=== PATIENT | female | born 1990 ===

== ENCOUNTER 2020-04-20 12:01 | Day surgery (SDC) | payer OTHER, SELFPAY ==
[2020-04-20] VITALS (11 sets, daily range): BP systolic 109–147; BP diastolic 60–94; PULSE 75–118; RESP 14–18; TEMP 36.2–36.6; O2SAT 97–100
--- NOTE | ~2020-04-20 | US_ITS ---
EXAMINATION: US OB <=14 wk fetus w TV EXAM DATE: 04/20/2020 13:44 INDICATION: Ectopic . 1st trimester. TECHNIQUE: Pelvic obstetrical transabdominal sonogram was performed by a technologist. There are mu ltiple grayscale and Doppler images available for interpretation. There are no earlier studies of th is gestation for comparison. FINDINGS: The uterus measures 8.4 x 4.4 cm. There is no intrauterine gestation sac identified. Endome trium measures 13 mm in thickness. Left ovary is morphologically normal with Doppler flow confirmed. The right ovary measures 1.0 x 2.0 x 4.1 cm with a thick walled cystic region consistent with gestati on sac and yolk sac. Suspect identification of a tiny pole with heart rate at 97 bpm. IMPRESSION: Live right ovarian ectopic . Reviewed, dictated and finalized at location A. UTER SUPPORT TECHNICIAN
--- NOTE | 2020-04-20 12:21 | ED.GENADULT ---
HPI - General Adult General Chief complaint: Unspecified Stated complaint: having an ectopic Time Seen by Provider: 04/20/20 12:21 History of Present Illness HPI narrative: 29 yo female female at approximately 4 weeks gestation presents to the ED for an ectopic . She reports that she was having severe pelvic pain 2 dyas ago and she was seen at an outside hospital. They did not do anyimaging. She then followed up with her family physician the following dy and was scheduled for an ultrasound. She had the ultrasound this morning and was called that she had an ectopic and that she needed to come in. Those records are not available at this time. She currently has mild right sided pelvic pain. No bleeding or discharge. Related Data Home Medications Medication Instructions Recorded Confirmed omeprazole 40 mg capsule,delayed 40 mg PO DAILY 06/21/19 07/05/19 release flu vac [id number] 36mos up(PF) syr IM 07/05/19 07/05/19 fluticasone propionate 50 NASAL 07/05/19 07/05/19 mcg/actuation nasal spray,suspension valacyclovir 1 gram tablet mg PO PRN 07/05/19 07/05/19 Allergies Allergy/AdvReac Type Severity Reaction Status Date / Time Sulfa (Sulfonamide Allergy Unknown Unknown Verified 04/20/20 12:03 Antibiotics) Review of Systems Review of Systems: All systems reviewed & are unremarkable except as noted in HPI and below Constitutional: Constitutional: Denies fever(s) Cardiovascular: Cardiovascular: Denies chest pain Respiratory: Respiratory: Denies dyspnea Gastrointestinal: Gastrointestinal: Denies nausea and Denies vomiting Genitourinary: Genitourinary: Denies vaginal discharge [facility] Past Medical History Medical History Encounter for Pap cervical smear following prior abnormal smear Essential (primary) hypertension Surgical History Surgical History H/O nasal septoplasty Family History Family History Father Family history of hypercholesterolemia Hypertension Malignant neoplasm of prostate Mother Family history of hypercholesterolemia Depression Family history of thyroid disease Hypertension Family history of ulcerative colitis Social History Social History Social History: ; menarche @ 13; OCP started @ 14 y/o Smoking status: Never smoker Second hand tobacco smoke exposure: No Alcohol intake: unknown Substance use: never Substance use type: marijuana Other substance usage details: occ hits Additional living arrangements comments: lives w/ Maurisio, alexander and Jessica, 8 y/o daughter by former boyfriend 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 Gender identity (if verbalized by the patient): Female Spiritual care concerns: No Agree to blood products: Yes Exam Const: General: healthy appearing Orientation/consciousness: patient oriented x3 HENMT: Head: normal to inspection Neck: Neck: normal visual inspection and no lymphadenopathy Chest: Chest palpation & inspection: no tenderness Resp: Effort & Inspection: normal respiratory effort Auscultation: clear to auscultation bilaterally, no rales, no rhonchi and no wheezes Cardio: Jugular venous distension: no JVD Rate: regular rate Rhythm: regular rhythm Heart sounds: no murmurs GI: Inspection: non-distended GI Palp: Yes Soft to palpation and No Tenderness to palpation present (GI) : General: Yes deferred Skin: General skin exam: normal color Neuro: General: patient oriented x3 and moves all extremities Speech: normal speech Extrem: General: no edema Psych: Appearance: well kempt Affect: normal affect Course Vital Signs Vital signs: Vital Signs Temperature 36.6 C 04/20/20 12:03 Pulse Rate 99 04/20/20 12
[2020-04-20 13:51] LABS: Basophils Absolute Auto 0.1 K/mm3 (0.0-0.1); Basophils Percent Auto 0.5 % (0.2-1.2); Eosinophils Absolute Auto 0.1 K/mm3 (0-0.3); Eosinophils Percent Auto 0.6 % (0-4.4); Hematocrit 43.1 % (37.0-47.0); Hemoglobin 14.5 g/dL (12.0-15.0); Immature Granulocyte Absolute 0.04 K/mm3 (0.00-0.031); Immature Granulocyte Percent A 0.4 % (0-0.5); Lymphocytes Absolute Auto 2.91 K/mm3 (0.9-3.2); Lymphocytes Percent Auto 26.7 % (18.3-44.2); Mean Corpuscular HGB Conc 33.6 g/dl (32-36); Mean Corpuscular Hemoglobin 29.4 pg (26-34); Mean Corpuscular Volume 87.4 fl (80-100); Mean Platelet Volume 11.4 fl (7.4-10.4); Monocytes Absolute Auto 0.7 K/mm3 (0.1-0.6); Monocytes Percent Auto 6.7 % (2.6-8.5); Neutrophils Absolute Auto 7.1 K/mm3 (1.3-6.7); Neutrophils Percent Auto 65.1 % (45.5-73.1); Platelet Count Result 302 k/mm3 (150-375); Red Blood Count 4.93 M/mm3 (4.2-5.4); Red Cell Distribution Width 13.2 % (11.5-14.5); White Blood Count 10.9 K/mm3 (4.5-10.0)
[2020-04-20 14:03] LABS: Anion Gap 11 mmol/L (8-16); Blood Urea Nitrogen 13 mg/dL (7-17); Calcium 9.4 mg/dL (8.4-10.2); Carbon Dioxide 24 mmol/L (22-30); Chloride 100 mmol/L (98-107); Estimated Glomerular Filt Rate > 60; Glucose 77 mg/dL (65-105); Potassium 3.6 mmol/L (3.4-5.0); Sodium 135 mmol/L (137-145)
--- NOTE | 2020-04-20 15:04 | PM.IMHP ---
H&P: HPI History of Present Illness Date/Time: 04/20/20 15:04 Chief Complaint: Ectopic Narrative: Nazanin Magallon is a 29 year old female presenting to the emergency department with reports of the previously diagnosed ectopic by her primary OBGYN. She states that she had an ultrasound at an outside hospital this morning which showed an ectopic she was advised by her OBGYN to go to the emergency room for further evaluation. An ectopic was confirmed on ultrasound here at [facility] which showed a live in the right adnexa with heart motion detected. She reports mild low abdominal pain but states that it is not significant. Denies vaginal bleeding. Denies fevers chills nausea or vomiting. The last time she ate was 9:00 a.m. this morning when she had cereal for breakfast. Review of Systems Constitutional: Constitutional: Reports no additional constitutional complaints Cardiovascular: Cardiovascular: Reports no additional cardiovascular complaints Respiratory: Respiratory: Reports no additional respiratory complaints Gastrointestinal: Gastrointestinal: Reports as per HPI and Reports no additional gastrointestinal complaints Genitourinary: Genitourinary: Reports as per HPI Musculoskeletal: Musculoskeletal: Reports no additional musculoskeletal complaints Neurologic: Reports system reviewed and no additional complaints, except as documented Psychiatric: Psychiatric: Reports no additional psychiatric complaints Endocrine: Endocrine: Reports no additional endocrine complaints Hematologic/Lymphatic: Hematologic/Lymphatic: Reports no additional hematologic/lymphatic complaints Allergic/Immunologic: Allergic/Immunologic: Reports no additional allergic/immunologic complaints [facility] Past Medical History Medical History Encounter for Pap cervical smear following prior abnormal smear Essential (primary) hypertension Surgical History Surgical History H/O nasal septoplasty Family History Family History Father Family history of hypercholesterolemia Hypertension Malignant neoplasm of prostate Mother Family history of hypercholesterolemia Depression Family history of thyroid disease Hypertension Family history of ulcerative colitis Social History Social History (Updated 04/20/20 @ 15:10 by Beny Dixon DO) Social History: ; menarche @ 13; OCP started @ 14 y/o Smoking status: Never smoker Second hand tobacco smoke exposure: No Alcohol intake: unknown Substance use: never Substance use type: marijuana Other substance usage details: occ hits Additional living arrangements comments: lives w/ Maurisio, alexander and Jessica, 8 y/o daughter by former boyfriend 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 Gender identity (if verbalized by the patient): Female Spiritual care concerns: No Agree to blood products: Yes Meds Home Medications and Allergies Home Medications Medication Instructions Recorded Confirmed Type lisinopril 10 mg tablet 10 mg PO DAILY #30 tablet 06/21/19 07/05/19 Rx norgestimate-ethinyl estradiol 1 tablet PO DAILY #28 tablet 06/21/19 07/05/19 Rx 0.18 mg/0.215mg/0.25mg-35 mcg(28)tablet omeprazole 40 mg capsule,delayed 40 mg PO DAILY 06/21/19 07/05/19 History release flu vac [id number] 36mos up(PF) syr IM 07/05/19 07/05/19 History fluticasone propionate 50 NASAL 07/05/19 07/05/19 History mcg/actuation nasal spray,suspension valacyclovir 1 gram tablet mg PO PRN 07/05/19 07/05/19 History labetalol 100 mg tablet 100 mg PO Q12H #60 tablet 10/05/19 Rx citalopram 10 mg tablet See Rx Instructions .ROUTE 12/13/19 Rx .COMPLEX #30 tablet Allergies Allergy/AdvReac Type Severity Reaction Status Date / Time Sulfa (Sulfo
--- NOTE | 2020-04-20 15:31 | WPDHPUPDATE1 ---
History and Physical Update Update Date/Time: 04/20/20 15:31 History and Physical has been reviewed, including an updated exam of the patient. There are NO changes in the patient's condition. Risks, benefits, and alternatives have been discussed and questions answered. Patient agrees to proceed with procedure.
--- NOTE | 2020-04-20 15:33 | WPDANESEPPF ---
Anes - Initial Pre Proc Eval Date/Time: 04/20/20 15:33 Surgeon: Beny Dixon DO Pre Op Diagnosis: having an ectopic Patient Data Age: 29 Gender: F Height: 1.5 m Weight: 53 kg Last Vital Signs Temp 36.6 C 04/20/20 12:03 Pulse 85 04/20/20 14:37 Resp 16 04/20/20 14:37 BP 132/86 04/20/20 14:37 Pulse Ox 100 04/20/20 14:37 Allergies Allergy/AdvReac Type Severity Reaction Status Date / Time Sulfa (Sulfonamide Allergy Unknown Unknown Verified 04/20/20 12:03 Antibiotics) Home Medications Medication Instructions Recorded Confirmed Type lisinopril 10 mg tablet 10 mg PO DAILY #30 tablet 06/21/19 07/05/19 Rx norgestimate-ethinyl estradiol 1 tablet PO DAILY #28 tablet 06/21/19 07/05/19 Rx 0.18 mg/0.215mg/0.25mg-35 mcg(28)tablet omeprazole 40 mg capsule,delayed 40 mg PO DAILY 06/21/19 07/05/19 History release flu vac [id number] 36mos up(PF) syr IM 07/05/19 07/05/19 History fluticasone propionate 50 NASAL 07/05/19 07/05/19 History mcg/actuation nasal spray,suspension valacyclovir 1 gram tablet mg PO PRN 07/05/19 07/05/19 History labetalol 100 mg tablet 100 mg PO Q12H #60 tablet 10/05/19 Rx citalopram 10 mg tablet See Rx Instructions .ROUTE 12/13/19 Rx .COMPLEX #30 tablet Laboratory Tests 04/20/20 04/20/20 04/20/20 13:40 13:40 13:40 WBC 10.9 K/mm3 H K/mm3 (4.5-10.0) RBC 4.93 M/mm3 M/mm3 (4.2-5.4) Hgb 14.5 g/dL g/dL (12.0-15.0) Hct 43.1 % % (37.0-47.0) MCV 87.4 fl fl (80-100) MCH 29.4 pg pg (26-34) MCHC 33.6 g/dl g/dl (32-36) RDW 13.2 % % (11.5-14.5) Plt Count 302 k/mm3 k/mm3 (150-375) MPV 11.4 fl H fl (7.4-10.4) Immature Gran % (Auto) 0.4 % % (0-0.5) Neut % (Auto) 65.1 % % (45.5-73.1) Lymph % (Auto) 26.7 % % (18.3-44.2) Lassen % (Auto) 6.7 % % (2.6-8.5) Eos % (Auto) 0.6 % % (0-4.4) Baso % (Auto) 0.5 % % (0.2-1.2) Lymph # (Auto) 2.91 K/mm3 K/mm3 (0.9-3.2) Lassen # (Auto) 0.7 K/mm3 H K/mm3 (0.1-0.6) Eos # (Auto) 0.1 K/mm3 K/mm3 (0-0.3) Baso # (Auto) 0.1 K/mm3 K/mm3 (0.0-0.1) Abs Immat Gran (auto) 0.04 K/mm3 H K/mm3 (0.00-0.031) Absolute Neuts (auto) 7.1 K/mm3 H K/mm3 (1.3-6.7) Absolute Nucleated RBC 0.0 K/mm3 K/mm3 (0.0-0.012) Nucleated RBC % 0.0 % % (0.0-0.2) Sodium 135 mmol/L L mmol/L (137-145) Potassium 3.6 mmol/L mmol/L (3.4-5.0) Chloride 100 mmol/L mmol/L (98-107) Carbon Dioxide 24 mmol/L mmol/L (22-30) Anion Gap 11 mmol/L mmol/L (8-16) BUN 13 mg/dL mg/dL (7-17) Creatinine 0.50 mg/dL L mg/dL (0.7-1.0) Estim Creat Clear Calc Not Reportable Estimated GFR > 60 (59 - ) Glucose 77 mg/dL mg/dL (65-105) Calcium 9.4 mg/dL mg/dL (8.4-10.2) Beta HCG, Quant 4673.00 mIU/ML mIU/ML Blood Type A Positive Antibody Screen Negative Screen Not Reportable Baby's Blood Type Not Reportable Baby's ADALBERTO Not Reportable Doses of RhIg Required 0 Patient hx anesthesia problems: none Family hx anesthesia problems: none PMFSH Past Medical History Medical History Encounter for Pap cervical smear following prior abnormal smear Essential (primary) hypertension Surgical History Surgical History H/O nasal septoplasty Family History Family History Father Family history of hypercholesterolemia Hypertension Malignant neoplasm of prostate Mother Family history of hypercholesterolemia Depression Family history of thyroid disease Hy
[2020-04-20] MEDS: LACTATED RINGERS 1,000 ML 30 ML IV CONT ×2 (16:16→17:36)
[2020-04-20] MEDS: KETOROLAC 30 MG/ML VIAL (*BKC) IV PUSH (17:20)
--- NOTE | 2020-04-20 17:34 | P.OPB_ITS ---
Procedure Note - Brief Procedure Note - Brief Date of procedure: 04/20/20 Pre-op diagnosis: having an ectopic Right ectopic Post-op diagnosis: same Procedure performed: Diagnostic laparoscopy, right salpingectomy Anesthesia: NUNOA Surgeon: Beny Dixon DO Estimated blood loss (mL): 50 Drains: No Packing: No Pathology: yes Complications: No immediate complications Condition: stable Disposition: PACU Findings: Ectopic contained in the right fallopian tube. Approximately 50 mL of hemo peritoneum. Normal appearing bilateral ovaries. Normal appearing left fallopian tube.
--- NOTE | 2020-04-20 17:36 | PM.PROC ---
Procedure Note - Detailed Date of procedure: 04/20/20 Pre-op diagnosis: having an ectopic Right ectopic Post-op diagnosis: same Procedure performed: Diagnostic laparoscopy, right salpingectomy Description of procedure: The patient was transferred to the OR where she was moved to the OR table. After adequate anesthesia was established the patient was placed in dorsal lithotomy position with Yellofin stirrups for support. Perineum was prepped using Betadine. Abdomen was prepped using chlorhexidine. Patient was draped in the usual sterile fashion. Augustine indwelling catheter was inserted. A time-out was performed to identify the correct patient and procedure. A speculum was inserted into the vagina single-tooth tenaculum was used to stabilize the cervix. Uterus was sounded to 8 cm. Cervix was then dilated systematically. A Zumi uterine manipulator device was inserted into the uterus. The at this point speculum was removed single-tooth tenaculum was removed and attention was turned to the abdomen. A small skin incision was made with a scalpel at the inferior aspect of the umbilicus. Laparoscope was inserted into abdominal cavity under direct visualization. The abdomen was insufflated with CO2 gas. Patient was placed in Trendelenburg position and survey of the pelvic cavity was performed. The ectopic was visualized on the right fallopian tube where it was contained in within the tube with some minimal bleeding from the fimbrial end of the fallopian tube. Approximately 50 mL of hemoperitoneum was also noted. At this point a skin incision was made on the right side of the abdomen for a 5 mm port which was inserted under the under direct visualization. A skin incision was made on the left side of the abdomen for a 10 mm port which was inserted under direct visualization. At this point right salpingectomy was performed with the LigaSure device. The Endo-Catch bag was inserted into the abdomen and the specimen was removed from the surgical field. There was a small area of bleeding from the salpingectomy site on the ovary this was cauterized using monopolar good hemostasis was noted. Pelvis was irrigated and hemoperitoneum was evacuated. A Axel-Francois device was used to close the fascia on the 10 mm port side. At this point all instrumentation was removed from the abdomen CO2 gas was removed. The skin was reapproximated using 4 0 Monocryl the Zumi uterine manipulator device was removed. All instrument and sponge counts were correct at the end of the procedure. The patient tolerated procedure well and was transferred to the recovery room in stable condition. Anesthesia: GETA Surgeon: Beny Dixon DO Estimated blood loss (mL): 50 Drains: No Packing: No Pathology: yes Complications: No immediate complications Condition: stable Disposition: PACU Findings: Ectopic contained in the right fallopian tube. Approximately 50 mL of hemo peritoneum. Normal appearing bilateral ovaries. Normal appearing left fallopian tube.
[2020-04-20] MEDS: fentaNYL CITRATE INJ (*CRX) 100 MCG/2 ML VIAL 25 MCG IV PUSH ×4 (17:40→17:55)
[2020-04-20] MEDS: HYDROmorphone HCL INJ (*CRX) 1 MG/ML SYR 0.25 MG IV PUSH ×8 (17:58→18:45)
--- NOTE | 2020-04-20 18:05 | SUR.PHASEI ---
UPDATED SIG OTHER, [facility], TOLD HIM 2 PAIN SCRIPTS WERE SENT TO [facility] IN [place]. [facility] CALLED, THEIR PHARMACY IS CLOSED. CALLING DR QUIROZ
--- NOTE | 2020-04-20 18:32 | SUR.PHASEI ---
1809; CALLED [facility] ON [address]. THEY ARE OPEN 24 HOURS. I GAVE A VERBAL ORDER FOR THE IBUPROFEN SCRIPT. 1819; CALLED DR QUIROZ. HE WILL ELECTRONICALLY SEND [facility] [place].
--- NOTE | 2020-04-20 18:47 | SUR.PHASEI ---
SPOKE TO [facility], SIG OTHER. GAVE HIM ADDRESS OF [address] ON [facility] IN [place]
--- NOTE | 2020-04-20 18:48 | SUR.PHASEI ---
PT DOING WELL. AWAKE AND ALERT. TALKATIVE AND SMILING. STATES PAIN 5/10. WILL TRANSFER TO [facility].
[2020-04-20] MEDS: oxyCODONE HCL (*CRX) 5 MG TAB IR PO (19:15)
== END 2020-04-20 19:45 | disposition home or self-care (01) ==
LOC: ANHED 12:21 → ANHSURGERY 14:27
PROVIDERS: Emergency Provider Emergency Medicine; PCP Family Medicine; Visit Provider Obstetrics & Gynecology
PROC: (CPT 49320; principal; 2020-04-20 16:45)
DX: O00.101 Right tubal pregnancy without intrauterine pregnancy (principal); I10 Essential (primary) hypertension; F12.90 Cannabis use, unspecified, uncomplicated
CPT/HCPCS: 59151; 36415; 76801; 76817; 80048; 84702; 85025; 85461; 88302; 88305; 99285; A9270; J0330; J1100; J1170; J1885; J2250; J2405; J2704; J2710; J3010; J7120

== ENCOUNTER 2021-03-08 15:23 | Outpatient (CLI) | payer OTHER, SELFPAY ==
--- NOTE | 2021-03-12 09:05 | WPDHOLTEREM ---
Holter/Event Monitor Holter/Event Monitor Date of procedure: 03/08/21 Holter/Event Procedure: 24 Hr Holter Monitor Indications: Palpitations Conclusion: 1. 24 hour holter monitor on 03/08/21. 2. Underlying rhythm is sinus rhythm. HR range 65-162 bpm; average HR 98 bpm. 3. No premature supraventricular complexes. No supraventricular tachycardia. 4. There is one premature ventricular complex. No ventricular tachycardia. 5. No sinoatrial or atrioventricular blocks. No significant pauses greater than 2 seconds. 6. Patient reports symptom of heart racing which demonstrate sinus tachycardia at 141 bpm.
== END 2021-03-08 15:24 | disposition home or self-care (01) ==
LOC: CHSCARD 15:27
PROVIDERS: PCP Family Medicine; Visit Provider Family Medicine
DX: R00.2 Palpitations (principal)
CPT/HCPCS: 93225; 93226

== ENCOUNTER 2023-07-29 11:38 | Outpatient (CLI) | payer OTHER, SELFPAY ==
--- NOTE | ~2023-07-29 | MR_ITS ---
MRI of the left knee Clinical history: Pain Technique: Coronal proton density and proton density-weighted images, sagittal proton-density and T2 fat-sat images, and axial proton-density fat-saturated images were acquired. Findings: Anterior and posterior cruciate ligaments are intact. Medial collateral ligament and the la teral collateral ligament complex are intact. Popliteus tendon is intact. Medial and lateral menisci are intact, without evidence of tear. Articular cartilage is well preserved throughout the knee. Bone marrow signals are unremarkable. Extensor mechanism is intact. No significant joint effusion or Roth's cyst. Impression: No significant abnormality seen. Reviewed, dictated and finalized at location M. Impression: No significant abnormality seen.
== END 2023-07-29 11:39 ==
LOC: GOSHIMG 11:39
PROVIDERS: PCP Physician Assistant; Visit Provider Physician Assistant
DX: M25.562 Pain in left knee (principal)
CPT/HCPCS: 73721